=== PATIENT | male | born 1965 | race Caucasian/White ===

== ENCOUNTER 2019-07-03 14:21 | Emergency (ER) | payer MEDICAID ==
[~2019-07-03] VITALS: Ht 177.8 cm; Wt 86.2 kg
[2019-07-03 14:49] VITALS: BP_SYST 127
[2019-07-03 15:37] VITALS: BP_SYST 124
== END 2019-07-03 16:00 | disposition home or self-care (01) ==
LOC: SED 14:21
DX: L29.9 Pruritus, unspecified (principal)
CPT/HCPCS: 99283